=== PATIENT | female | born 2000 | race Caucasian/White ===

== ENCOUNTER 2023-10-03 09:27 | Emergency (ER) | payer OTHER, SELFPAY ==
[2023-10-03 09:34] VITALS: BP 131/86
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
[2023-10-03 10:49] VITALS: BMI 23.6
== END 2023-10-03 13:01 | disposition home or self-care (01) ==
LOC: EMR 09:27
PROVIDERS: EMERGENCY PHYSICIAN Student in an Organized Health Care Education/Training Program; FAMILY PHYSICIAN Family Medicine
DX: S13.4XXA Sprain of ligaments of cervical spine, initial encounter (principal); V43.52XA Car driver injured in collision with other type car in traffic accident, initial encounter
CPT/HCPCS: 99283; 72050

== ENCOUNTER → 2024-11-15 09:11 | Outpatient (REF) | payer OTHER, SELFPAY | LOC: REG 09:11 | PROVIDERS: ATTENDING PHYSICIAN Nurse Practitioner Family | DX: Z23 Encounter for immunization (principal) | CPT/HCPCS: 36415; 86480; 86706 ==